=== PATIENT | female | born 1945 | race Caucasian/White ===

== ENCOUNTER 2021-09-04 16:10 | Inpatient (IN) ==
[2021-09-04] MEDS ORDERED: Acetaminophen 325 MG TABLET PO PRN (16:19)
[2021-09-04] MEDS ORDERED: Ondansetron ODT 4 MG TAB.RAPDIS SL PRN (16:19)
[2021-09-04 18:09] VITALS: BP 132/79; PULSE 89; RESP 17; TEMP 97.6; O2SAT 91
[2021-09-04] MEDS ORDERED: ALPRAZolam 0.5 MG TABLET PO SCH (21:00)
[2021-09-04] MEDS ORDERED: Sennosides/Docusate Sodium TABLET PO SCH (21:00)
[2021-09-04] MEDS ORDERED: *HR* Heparin 5,000 UNIT/ML VIAL SQ SCH (22:00)
[2021-09-05] MEDS ORDERED: Famotidine 20 MG TABLET PO SCH (09:00)
[2021-09-05] MEDS ORDERED: hydroCHLOROthiazide 25 MG TABLET PO SCH (09:00)
== END 2021-09-04 20:30 | disposition left against medical advice (07) | DRG 948 ==
LOC: INPPIK 17:58
PROVIDERS: ADMIT Family Medicine; ATTEND Family Medicine